=== PATIENT | female | born 1960 | race Caucasian/White ===

== ENCOUNTER 2018-03-07 18:15 | Inpatient (IN) | payer OTHER ==
[2018-03-07 19:06] LABS: ADD MAN DIFF? NO
[2018-03-07 19:08] LABS: ABNORMAL IP MESSAGE 1; BASOPHILS % 0.2 % (0.0-2.0); HEMATOCRIT 44.8 % (37.0-47.0); HEMOGLOBIN 14.6 g/dl (12.0-16.0); LYMPHOCYTES # 0.8 10^3/ul (0.8-2.9); LYMPHOCYTES % 8.6 % (15.0-51.0); MEAN CORPUSCULAR HEMOGLOBIN 31.1 pg (29.0-33.0); MEAN CORPUSCULAR HGB CONC 32.6 g/dl (32.0-37.0); MEAN CORPUSCULAR VOLUME 95.3 fl (82.0-101.0); MEAN PLATELET VOLUME 13.2 fl (7.4-10.4); MONOCYTE # 0.3 10^3/ul (0.3-0.9); MONOCYTES % 2.8 % (0.0-11.0); NEUTROPHIL # 8.4 10^3/ul (1.6-7.5); NEUTROPHILS % 87.5 % (39.0-77.0); PLATELET COUNT 261 10^3/UL (140-415); RED CELL DISTRIBUTION WIDTH 13.5 % (11.5-14.5)
[2018-03-07 19:08] LABS: WHITE BLOOD COUNT 9.6 10^3/ul (4.8-10.8)
[2018-03-07 19:12] LABS: POSITIVE DIFF @See below
[2018-03-07] MEDS: SOD CHLORIDE 0.9% 2,000 ML IV (19:17)
[2018-03-07 19:18] LABS: MODE ROOM AIR; MetHgb Venous 0.2 %; Sample Type Blood venous; Site VENOUS LINE; Venous COHb 0.3 %; Venous Fraction OxyHgb 66.2 %; Venous Oxygen Sat 66.5 mmHG (55.0-75.0); Venous Total Hemglobin 15.5 g/dl
[2018-03-07 19:25] LABS: LACTIC ACID 1.8 mmol/L (0.5-2.0)
[2018-03-07 19:31] LABS: ALANINE AMINOTRANSFERASE 50 IU/L (13-69); ALBUMIN 4.3 g/dl (3.3-4.9); ALBUMIN/GLOBULIN RATIO 1.43; ALKALINE PHOSPHATASE 156 IU/L (42-121); ANION GAP 27 (8-16); ASPARTATE AMINO TRANSFERASE 24 IU/L (15-46); BLOOD UREA NITROGEN 20 mg/dl (7-20); CALCIUM 9.5 mg/dl (8.4-10.2); CHLORIDE 101 mmol/L (97-110); CREATININE 0.85 mg/dl (0.44-1.00); MAGNESIUM 2.3 mg/dl (1.7-2.5); PHOSPHORUS 3.7 mg/dl (2.5-4.9); POTASSIUM 5.4 mmol/L (3.5-5.1); SODIUM 132 mmol/L (135-144); TOTAL PROTEIN 7.3 g/dl (6.1-8.1)
[2018-03-07 19:32] LABS: ADD UMIC YES; UR ASCORBIC ACID NEGATIVE (NEGATIVE); UR BILIRUBIN (Dip) NEGATIVE (NEGATIVE); UR BLOOD (Dip) 1+ mg/dL (NEGATIVE); UR CLARITY SLIGHTLY CLOUDY (CLEAR); UR COLOR YELLOW (YELLOW); UR GLUCOSE (Dip) 3+ mg/dL (NEGATIVE); UR KETONES (Dip) 2+ mg/dL (NEGATIVE); UR LEUKOCYTE ESTERASE (Dip) TRACE Leu/ul (NEGATIVE); UR MUCUS FEW /HPF (NONE SEEN); UR NITRITE (Dip) NEGATIVE (NEGATIVE); UR RBC 3 /HPF (0-5); UR SPECIFIC GRAVITY (Dip) 1.027 (1.003-1.030); UR SQUAMOUS EPITHELIAL CELL FEW /HPF (FEW); UR TOTAL PROTEIN (Dip) NEGATIVE (NEGATIVE); UR UROBILINOGEN (Dip) NEGATIVE (NEGATIVE); UR WBC 6 /HPF (0-5)
[2018-03-07 19:43] LABS: TROPONIN-I < 0.012 ng/ml (0.00-0.12)
[2018-03-07 19:45] LABS: CARBON DIOXIDE 9 mmol/L (21-31); GLUCOSE 1106 mg/dl (70-220)
[2018-03-07 19:50] LABS: B-TYPE NATRIURETIC PEPTIDE 42 PG/ML (0-125)
[2018-03-07] MEDS: CEFEPIME 1GM/50 ML (PMX) 50 ML IVPB (20:00)
[2018-03-07] MEDS: INSULIN HUMAN REGULAR 100 UNIT in SOD CHLORIDE 0.9% 99 ML IV (20:41)
[2018-03-07] MEDS ORDERED: DEXTROSE 50% 50 ML IV (21:00)
[2018-03-07] MEDS ORDERED: DEXTROSE 50% 25 ML IV (21:00)
[2018-03-07] MEDS: INSULIN REGULAR, HUMAN 100 UNIT in SOD CHLORIDE 0.9% 100 ML IV (21:19)
[2018-03-07] MEDS ORDERED: ADJUSTMENT OF INSULIN INFUSION RATE (DKA PROTOCOL) XX (21:30)
[2018-03-07 21:51] LABS: LACTIC ACID 1.6 mmol/L (0.5-2.0)
[2018-03-07 22:04] LABS: ANION GAP 31 (8-16); BLOOD UREA NITROGEN 19 mg/dl (7-20); CALCIUM 9.2 mg/dl (8.4-10.2); CHLORIDE 105 mmol/L (97-110); CREATININE 0.76 mg/dl (0.44-1.00); POTASSIUM 5.1 mmol/L (3.5-5.1); SODIUM 137 mmol/L (135-144)
[2018-03-07] MEDS: SOD CHLORIDE 0.9% 1,000 ML IV ×2 (22:05→23:16)
[2018-03-07 22:14] LABS: CARBON DIOXIDE 6 mmol/L (21-31); GLUCOSE 836 mg/dl (70-220)
[2018-03-07 23:26] LABS: LACTIC ACID 1.3 mmol/L (0.5-2.0)
[2018-03-07 23:29] LABS: ANION GAP 24 (8-16); BLOOD UREA NITROGEN 16 mg/dl (7-20); CARBON DIOXIDE 10 mmol/L (21-31); CHLORIDE 115 mmol/L (97-110); CREATININE 0.75 mg/dl (0.44-1.00); POTASSIUM 3.4 mmol/L (3.5-5.1); SODIUM 146 mmol/L (135-144)
[2018-03-07] MEDS ORDERED: DOCUSATE SODIUM 100 MG CAP PO (23:30)
[2018-03-07] MEDS ORDERED: NACL 0.9% 3 ML SYG IV (23:30)
[2018-03-07] MEDS ORDERED: morphine 2 MG INJ IV (23:30)
[2018-03-07] MEDS ORDERED: ONDANSETRON 4 MG INJ IV (23:30)
[2018-03-07] MEDS ORDERED: ZOLPIDEM 5 MG TAB PO (23:30)
[2018-03-07] MEDS ORDERED: HYDROCODONE/APAP (5/325) TAB PO (23:30)
[2018-03-07] MEDS ORDERED: MAGNESIUM HYDROXIDE 30ML CUP PO (23:30)
[2018-03-07] MEDS: ACCU-CHEK XX (23:30)
[2018-03-07] MEDS ORDERED: DEXTROSE 50% 50 ML SYRINGE IV ×2 (23:30)
[2018-03-07 23:36] LABS: GLUCOSE 572 mg/dl (70-220)
[2018-03-08] MEDS: LACTATED RINGER'S 1,000 ML IV (00:07)
[2018-03-08] MEDS: SOD CHLORIDE 0.9% 1,000 ML IV (00:18)
[2018-03-08] MEDS: ACCU-CHEK XX ×24 (00:38→23:24)
[2018-03-08] MEDS: NS + KCL 20 MEQ 1,000 ML IV (01:27)
[2018-03-08] MEDS: ACETAMINOPHEN 325 MG TAB PO (01:39)
[2018-03-08 01:55] LABS: ANION GAP 25 (8-16); BLOOD UREA NITROGEN 14 mg/dl (7-20); CALCIUM 8.3 mg/dl (8.4-10.2); CHLORIDE 120 mmol/L (97-110); CREATININE 0.62 mg/dl (0.44-1.00); GLUCOSE 359 mg/dl (70-220); SODIUM 150 mmol/L (135-144)
[2018-03-08 01:56] LABS: LACTIC ACID 1.3 mmol/L (0.5-2.0)
[2018-03-08 01:58] LABS: CARBON DIOXIDE 8 mmol/L (21-31)
[2018-03-08] MEDS: POTASSIUM CHLORIDE 100 ML IVPB ×2 (03:19→06:00)
[2018-03-08 03:26] LABS: ADD MAN DIFF? NO
[2018-03-08] MEDS: D5W-0.45 NACL + KCL 20 MEQ 1,000 ML IV (03:29)
[2018-03-08 03:48] LABS: CHOLESTEROL 254 mg/dl (100-200); HDL CHOLESTEROL 50 mg/dl (35-98); LDL CHOLESTEROL,CALCULATED 154 mg/dl; MAGNESIUM 2.1 mg/dl (1.7-2.5); TRIGLYCERIDES 252 mg/dl (0-149)
[2018-03-08 03:48] LABS: PHOSPHORUS 1.6 mg/dl (2.5-4.9)
[2018-03-08 03:49] LABS: ANION GAP 23 (8-16); BLOOD UREA NITROGEN 12 mg/dl (7-20); CALCIUM 8.4 mg/dl (8.4-10.2); CHLORIDE 122 mmol/L (97-110); CREATININE 0.66 mg/dl (0.44-1.00); GLUCOSE 274 mg/dl (70-220); POTASSIUM 3.2 mmol/L (3.5-5.1); SODIUM 151 mmol/L (135-144)
[2018-03-08 03:52] LABS: CARBON DIOXIDE 9 mmol/L (21-31)
[2018-03-08 04:02] LABS: ABNORMAL IP MESSAGE 1; BASOPHILS % 0.2 % (0.0-2.0); HEMATOCRIT 39.9 % (37.0-47.0); HEMOGLOBIN 13.1 g/dl (12.0-16.0); LYMPHOCYTES # 2.6 10^3/ul (0.8-2.9); LYMPHOCYTES % 24.1 % (15.0-51.0); MEAN CORPUSCULAR HEMOGLOBIN 30.1 pg (29.0-33.0); MEAN CORPUSCULAR HGB CONC 32.8 g/dl (32.0-37.0); MEAN CORPUSCULAR VOLUME 91.7 fl (82.0-101.0); MEAN PLATELET VOLUME 13.3 fl (7.4-10.4); MONOCYTE # 0.9 10^3/ul (0.3-0.9); NEUTROPHIL # 7.2 10^3/ul (1.6-7.5); NEUTROPHILS % 66.9 % (39.0-77.0); PLATELET COUNT 184 10^3/UL (140-415); RED BLOOD COUNT 4.35 10^6/ul (4.20-5.40); RED CELL DISTRIBUTION WIDTH 13.2 % (11.5-14.5)
[2018-03-08 04:02] LABS: WHITE BLOOD COUNT 10.7 10^3/ul (4.8-10.8)
[2018-03-08] MEDS: INSULIN HUMAN REGULAR 100 UNIT in SOD CHLORIDE 0.9% 99 ML IV ×2 (04:03→14:35)
[2018-03-08 04:11] LABS: POSITIVE DIFF @See below
[2018-03-08 04:19] LABS: FREE THYROXINE INDEX (Calc) 1.24 ug/ml (0.65-3.89); T3 UPTAKE 37.6 % (23.5-40.5); T4 (THYROXINE) 3.3 ug/dl (5.5-11.0)
[2018-03-08] MEDS: CEFTRIAXONE 1 GM/50 ML (PMX) 50 ML IVPB (05:30)
[2018-03-08 08:00] LABS: ANION GAP 12 (8-16); BLOOD UREA NITROGEN 9 mg/dl (7-20); CALCIUM 8.1 mg/dl (8.4-10.2); CARBON DIOXIDE 16 mmol/L (21-31); CHLORIDE 125 mmol/L (97-110); CREATININE 0.48 mg/dl (0.44-1.00); GLUCOSE 244 mg/dl (70-220); POTASSIUM 3.5 mmol/L (3.5-5.1); SODIUM 149 mmol/L (135-144)
[2018-03-08] MEDS: ENOXAPARIN 40 MG/0.4 ML SYG SC (08:56)
[2018-03-08 11:14] LABS: ANION GAP 13 (8-16); BLOOD UREA NITROGEN 9 mg/dl (7-20); CARBON DIOXIDE 14 mmol/L (21-31); CHLORIDE 122 mmol/L (97-110); CREATININE 0.49 mg/dl (0.44-1.00); GLUCOSE 143 mg/dl (70-220); SODIUM 146 mmol/L (135-144)
[2018-03-08] MEDS ORDERED: GLUCAGON 1 MG INJ IM (12:30)
[2018-03-08] MEDS ORDERED: GLUCOSE GEL 15 GRAM TUBE BUCCAL (12:30)
[2018-03-08] MEDS ORDERED: GLUCOSE GEL 15 GRAM TUBE PO ×2 (12:30)
[2018-03-08] MEDS ORDERED: DEXTROSE 50% 50 ML SYRINGE IV ×2 (12:30)
[2018-03-08] MEDS: POTASSIUM CHLORIDE 40 MEQ in DEXTROSE 5%-0.225% NACL 1,000 ML IV (13:30)
[2018-03-08 16:27] LABS: ANION GAP 14 (8-16); BLOOD UREA NITROGEN 9 mg/dl (7-20); CALCIUM 8.4 mg/dl (8.4-10.2); CARBON DIOXIDE 15 mmol/L (21-31); CHLORIDE 121 mmol/L (97-110); GLUCOSE 85 mg/dl (70-220); SODIUM 147 mmol/L (135-144)
[2018-03-08] MEDS: MAGNESIUM SULFATE 2 GM/50 ML 50 ML IVPB (17:56)
[2018-03-08] MEDS: POTASSIUM CHLORIDE (SR) 20 MEQ TAB PO (17:56)
[2018-03-08] MEDS: POTASSIUM CHLORIDE 40 MEQ in DEXTROSE 10%/0.2% NACL 1,000 ML IV (18:40)
[2018-03-08] MEDS: INSULIN GLARGINE [LANtus] 3 ML PEN SC (20:28)
[2018-03-08 22:51] LABS: ANION GAP 11 (8-16); BLOOD UREA NITROGEN 8 mg/dl (7-20); CALCIUM 8.2 mg/dl (8.4-10.2); CARBON DIOXIDE 16 mmol/L (21-31); CHLORIDE 115 mmol/L (97-110); CREATININE 0.49 mg/dl (0.44-1.00); GLUCOSE 166 mg/dl (70-220); POTASSIUM 3.4 mmol/L (3.5-5.1); SODIUM 139 mmol/L (135-144)
[2018-03-09] MEDS: ACCU-CHEK XX ×12 (00:26→19:49)
[2018-03-09] MEDS: INSULIN HUMAN REGULAR 100 UNIT in SOD CHLORIDE 0.9% 99 ML IV (00:45)
[2018-03-09] MEDS: POTASSIUM CHLORIDE 40 MEQ in DEXTROSE 10%/0.2% NACL 1,000 ML IV (01:18)
[2018-03-09 03:13] LABS: ADD MAN DIFF? NO
[2018-03-09 03:14] LABS: BASOPHILS % 0.4 % (0.0-2.0); EOSINOPHILS % 0.4 % (0.0-7.0); HEMATOCRIT 35.8 % (37.0-47.0); HEMOGLOBIN 12.3 g/dl (12.0-16.0); LYMPHOCYTES # 2.2 10^3/ul (0.8-2.9); LYMPHOCYTES % 26.8 % (15.0-51.0); MEAN CORPUSCULAR HEMOGLOBIN 31.4 pg (29.0-33.0); MEAN CORPUSCULAR HGB CONC 34.4 g/dl (32.0-37.0); MEAN CORPUSCULAR VOLUME 91.3 fl (82.0-101.0); MEAN PLATELET VOLUME 12.5 fl (7.4-10.4); MONOCYTE # 0.5 10^3/ul (0.3-0.9); MONOCYTES % 6.1 % (0.0-11.0); NEUTROPHIL # 5.3 10^3/ul (1.6-7.5); NEUTROPHILS % 65.8 % (39.0-77.0); PLATELET COUNT 167 10^3/UL (140-415); RED BLOOD COUNT 3.92 10^6/ul (4.20-5.40); RED CELL DISTRIBUTION WIDTH 13.6 % (11.5-14.5)
[2018-03-09 03:36] LABS: ALANINE AMINOTRANSFERASE 36 IU/L (13-69); ALBUMIN 2.9 g/dl (3.3-4.9); ALBUMIN/GLOBULIN RATIO 0.96; ALKALINE PHOSPHATASE 91 IU/L (42-121); ANION GAP 10 (8-16); ASPARTATE AMINO TRANSFERASE 20 IU/L (15-46); BILIRUBIN,INDIRECT 0.3 mg/dl (0-1.1); BILIRUBIN,TOTAL 0.3 mg/dl (0.2-1.3); BLOOD UREA NITROGEN 6 mg/dl (7-20); CALCIUM 8.1 mg/dl (8.4-10.2); CARBON DIOXIDE 19 mmol/L (21-31); CHLORIDE 113 mmol/L (97-110); CREATININE 0.47 mg/dl (0.44-1.00); GLUCOSE 177 mg/dl (70-220); MAGNESIUM 2.1 mg/dl (1.7-2.5); PHOSPHORUS 1.2 mg/dl (2.5-4.9); POTASSIUM 3.5 mmol/L (3.5-5.1); SODIUM 138 mmol/L (135-144); TOTAL PROTEIN 5.9 g/dl (6.1-8.1)
[2018-03-09] MEDS: CEFTRIAXONE 1 GM/50 ML (PMX) 50 ML IVPB (06:30)
[2018-03-09] MEDS: POTASSIUM CHLORIDE (SR) 20 MEQ TAB PO (09:35)
[2018-03-09] MEDS: FAMOTIDINE 20 MG TAB PO (09:36)
[2018-03-09] MEDS: ENOXAPARIN 40 MG/0.4 ML SYG SC (09:37)
[2018-03-09] MEDS: POTASSIUM CHLORIDE 100 ML IVPB (09:46)
[2018-03-09] MEDS: INSULIN ASPART [NOVOLOG] 3 ML PEN SC ×6 (09:50→20:58)
[2018-03-09] MEDS: POTASSIUM CHLORIDE 20 MEQ POWDER FOR ORAL SOLN PO (09:58)
[2018-03-09] MEDS: DEXTROSE 5%-LR 1,000 ML IV (10:14)
[2018-03-09 10:28] LABS: HEPATITIS C VIRAL ANTIBODY NEGATIVE (NEGATIVE)
[2018-03-09] MEDS: LACTATED RINGER'S 1,000 ML IV (13:35)
[2018-03-09] MEDS: INSULIN GLARGINE [LANtus] 3 ML PEN SC (19:52)
[2018-03-10] MEDS: LACTATED RINGER'S 1,000 ML IV ×2 (02:24→13:43)
[2018-03-10 05:34] LABS: ADD MAN DIFF? NO
[2018-03-10] MEDS: CEFTRIAXONE 1 GM/50 ML (PMX) 50 ML IVPB (05:37)
[2018-03-10 05:41] LABS: BASOPHILS % 0.3 % (0.0-2.0); EOSINOPHILS # 0.1 10^3/ul (0.0-0.5); EOSINOPHILS % 0.8 % (0.0-7.0); HEMATOCRIT 33.3 % (37.0-47.0); HEMOGLOBIN 11.1 g/dl (12.0-16.0); LYMPHOCYTES # 3.4 10^3/ul (0.8-2.9); LYMPHOCYTES % 56.2 % (15.0-51.0); MEAN CORPUSCULAR HGB CONC 33.3 g/dl (32.0-37.0); MEAN PLATELET VOLUME 12.7 fl (7.4-10.4); MONOCYTE # 0.4 10^3/ul (0.3-0.9); MONOCYTES % 6.3 % (0.0-11.0); NEUTROPHIL # 2.1 10^3/ul (1.6-7.5); NEUTROPHILS % 35.2 % (39.0-77.0); PLATELET COUNT 153 10^3/UL (140-415); RED CELL DISTRIBUTION WIDTH 13.8 % (11.5-14.5)
[2018-03-10 05:41] LABS: WHITE BLOOD COUNT 6.1 10^3/ul (4.8-10.8)
[2018-03-10 06:07] LABS: ALANINE AMINOTRANSFERASE 39 IU/L (13-69); ALBUMIN 2.3 g/dl (3.3-4.9); ALBUMIN/GLOBULIN RATIO 0.88; ALKALINE PHOSPHATASE 80 IU/L (42-121); ANION GAP 8 (8-16); ASPARTATE AMINO TRANSFERASE 18 IU/L (15-46); BILIRUBIN,INDIRECT 0.1 mg/dl (0-1.1); BILIRUBIN,TOTAL 0.1 mg/dl (0.2-1.3); BLOOD UREA NITROGEN 10 mg/dl (7-20); CALCIUM 7.9 mg/dl (8.4-10.2); CARBON DIOXIDE 22 mmol/L (21-31); CHLORIDE 113 mmol/L (97-110); CREATININE 0.43 mg/dl (0.44-1.00); GLUCOSE 209 mg/dl (70-220); POTASSIUM 3.5 mmol/L (3.5-5.1); SODIUM 139 mmol/L (135-144); TOTAL PROTEIN 4.9 g/dl (6.1-8.1)
[2018-03-10 06:11] LABS: PHOSPHORUS 2.2 mg/dl (2.5-4.9)
[2018-03-10] MEDS: ACCU-CHEK XX ×6 (07:22→20:16)
[2018-03-10] MEDS: POTASSIUM CHLORIDE 20 MEQ POWDER FOR ORAL SOLN PO (08:05)
[2018-03-10] MEDS: LINAGLIPTIN 5 MG TABLET PO (08:05)
[2018-03-10] MEDS: metFORMIN 500 MG TAB PO ×2 (08:05→17:11)
[2018-03-10] MEDS: FAMOTIDINE 20 MG TAB PO (08:05)
[2018-03-10] MEDS: ENOXAPARIN 40 MG/0.4 ML SYG SC (08:06)
[2018-03-10] MEDS: INSULIN ASPART [NOVOLOG] 3 ML PEN SC ×7 (08:08→21:26)
[2018-03-10] MEDS: SOD PHOS MONO/DIBAS 250 MG TAB PO (08:23)
[2018-03-10] MEDS: INSULIN GLARGINE [LANtus] 3 ML PEN SC (20:16)
[2018-03-11] MEDS: LACTATED RINGER'S 1,000 ML IV (05:00)
[2018-03-11] MEDS: CEFTRIAXONE 1 GM/50 ML (PMX) 50 ML IVPB (05:33)
[2018-03-11 06:54] LABS: ADD MAN DIFF? NO
[2018-03-11 06:59] LABS: WHITE BLOOD COUNT 5.9 10^3/ul (4.8-10.8)
[2018-03-11 06:59] LABS: BASOPHILS % 0.5 % (0.0-2.0); EOSINOPHILS # 0.1 10^3/ul (0.0-0.5); EOSINOPHILS % 1.5 % (0.0-7.0); HEMATOCRIT 32.5 % (37.0-47.0); HEMOGLOBIN 11.2 g/dl (12.0-16.0); LYMPHOCYTES # 3.3 10^3/ul (0.8-2.9); LYMPHOCYTES % 55.2 % (15.0-51.0); MEAN CORPUSCULAR HEMOGLOBIN 31.1 pg (29.0-33.0); MEAN CORPUSCULAR HGB CONC 34.5 g/dl (32.0-37.0); MEAN CORPUSCULAR VOLUME 90.3 fl (82.0-101.0); MEAN PLATELET VOLUME 12.7 fl (7.4-10.4); MONOCYTE # 0.4 10^3/ul (0.3-0.9); MONOCYTES % 6.8 % (0.0-11.0); NEUTROPHIL # 2.1 10^3/ul (1.6-7.5); NEUTROPHILS % 34.8 % (39.0-77.0); PLATELET COUNT 134 10^3/UL (140-415); RED CELL DISTRIBUTION WIDTH 13.8 % (11.5-14.5)
[2018-03-11] MEDS: ACCU-CHEK XX ×6 (07:30→20:11)
[2018-03-11 07:34] LABS: ANION GAP 8 (8-16); BLOOD UREA NITROGEN 8 mg/dl (7-20); CARBON DIOXIDE 27 mmol/L (21-31); CHLORIDE 107 mmol/L (97-110); CREATININE 0.43 mg/dl (0.44-1.00); GLUCOSE 182 mg/dl (70-220); POTASSIUM 3.8 mmol/L (3.5-5.1); SODIUM 138 mmol/L (135-144)
[2018-03-11] MEDS: INSULIN ASPART [NOVOLOG] 3 ML PEN SC ×7 (08:03→21:09)
[2018-03-11] MEDS: FAMOTIDINE 20 MG TAB PO (08:23)
[2018-03-11] MEDS: LINAGLIPTIN 5 MG TABLET PO (08:23)
[2018-03-11] MEDS: metFORMIN 500 MG TAB PO ×2 (08:24→17:55)
[2018-03-11] MEDS: POTASSIUM CHLORIDE 20 MEQ POWDER FOR ORAL SOLN PO (08:24)
[2018-03-11] MEDS: ENOXAPARIN 40 MG/0.4 ML SYG SC (08:30)
[2018-03-11 15:46] LABS: CREATININE, RANDOM URINE 131 mg/dL (20-320); MICROALBUMIN 1.9 mg/dL; MICROALBUMIN/CREATININE RATIO 15 (<30)
[2018-03-11] MEDS: INSULIN GLARGINE [LANtus] 3 ML PEN SC (20:11)
[2018-03-12] MEDS: ACETAMINOPHEN 325 MG TAB PO (02:00)
[2018-03-12 05:36] LABS: ADD MAN DIFF? NO
[2018-03-12 05:41] LABS: BASOPHILS % 0.5 % (0.0-2.0); EOSINOPHILS # 0.1 10^3/ul (0.0-0.5); EOSINOPHILS % 1.5 % (0.0-7.0); HEMOGLOBIN 10.6 g/dl (12.0-16.0); LYMPHOCYTES # 3.1 10^3/ul (0.8-2.9); LYMPHOCYTES % 46.9 % (15.0-51.0); MEAN CORPUSCULAR HEMOGLOBIN 30.5 pg (29.0-33.0); MEAN CORPUSCULAR HGB CONC 33.1 g/dl (32.0-37.0); MEAN CORPUSCULAR VOLUME 92.2 fl (82.0-101.0); MEAN PLATELET VOLUME 12.8 fl (7.4-10.4); MONOCYTE # 0.7 10^3/ul (0.3-0.9); MONOCYTES % 9.8 % (0.0-11.0); NEUTROPHIL # 2.7 10^3/ul (1.6-7.5); NEUTROPHILS % 40.4 % (39.0-77.0); NUCLEATED RED BLOOD CELLS% 0.3 /100WBC (0.0-0.0); PLATELET COUNT 139 10^3/UL (140-415); RED BLOOD COUNT 3.47 10^6/ul (4.20-5.40); RED CELL DISTRIBUTION WIDTH 14.1 % (11.5-14.5)
[2018-03-12 05:41] LABS: WHITE BLOOD COUNT 6.7 10^3/ul (4.8-10.8)
[2018-03-12 06:07] LABS: ANION GAP 10 (8-16); BLOOD UREA NITROGEN 8 mg/dl (7-20); CARBON DIOXIDE 29 mmol/L (21-31); CHLORIDE 102 mmol/L (97-110); CREATININE 0.48 mg/dl (0.44-1.00); GLUCOSE 182 mg/dl (70-220); POTASSIUM 3.7 mmol/L (3.5-5.1); SODIUM 137 mmol/L (135-144)
[2018-03-12] MEDS: INSULIN ASPART [NOVOLOG] 3 ML PEN SC ×4 (08:05→12:10)
[2018-03-12] MEDS: LINAGLIPTIN 5 MG TABLET PO (08:06)
[2018-03-12] MEDS: metFORMIN 500 MG TAB PO (08:06)
[2018-03-12] MEDS: ACCU-CHEK XX ×4 (08:06→14:34)
[2018-03-12] MEDS: ENOXAPARIN 40 MG/0.4 ML SYG SC (08:07)
[2018-03-12 15:41] LABS: C-PEPTIDE 0.39 ng/mL (0.80-3.85)
[2018-03-13 05:26] LABS: ISLET CELL ANTIBODY SCREEN NEGATIVE (NEGATIVE)
[2018-03-14 15:16] LABS: INSULIN AUTOANTIBODY <0.4 U/mL (<0.4)
== END 2018-03-12 16:42 | disposition home or self-care (01) | DRG 637 ==
LOC: ICU 21:03 → E/R 18:15 → PP2 03-10 18:37
PROVIDERS: Internal Medicine
DX: E11.10 Type 2 diabetes mellitus with ketoacidosis without coma (principal); G93.41 Metabolic encephalopathy; N39.0 Urinary tract infection, site not specified
CPT/HCPCS: 36415; 80048; 80053; 80061; 81001; 82043; 82803; 82962; 83036; 83605; 83735; 83880; 84100; 84436; 84443; 84479; 84484; 84681; 85025; 86337; 86341; 86803; 87040; 87081; 87086; 93005; 96361; 96374; 96375; 96376; 99291-25